=== PATIENT | male | born 1960 | race Caucasian/White ===

== ENCOUNTER → 2017-10-17 | Outpatient (CLI) | payer OTHER ==
[2017-10-17 09:27] LABS: ADD MAN DIFF? NO
[2017-10-17 09:31] LABS: BASO # 0.1 x10^3/uL (0.0-0.2); BASO % 1 % (0-3); EOS # 0.1 x10^3/uL (0.0-0.7); EOS % 2 % (0-3); HEMATOCRIT 42.2 % (39.0-53.0); HEMOGLOBIN 14.3 g/dL (13.0-17.5); LYMPH # 1.9 x10^3/uL (1.0-4.8); LYMPH % 29 % (24-48); MEAN CORPUSCULAR HEMOGLOBIN 30 pg (25-35); MEAN CORPUSCULAR HGB CONC 34 g/dL (31-37); MEAN CORPUSCULAR VOLUME 90 fL (79-100); MONO # 0.5 x10^3/uL (0.0-1.1); MONO % 7 % (0-9); NEUT # 4.2 x10^3uL (1.8-7.7); NEUT % 61 % (31-73); PLATELET COUNT 190 x10^3/uL (140-400); RED BLOOD COUNT 4.72 x10^6/uL (4.30-5.70); RED CELL DISTRIBUTION WIDTH 13.2 % (11.5-14.5); WHITE BLOOD COUNT 6.8 x10^3/uL (4.0-11.0)
[2017-10-17 09:47] LABS: INR 0.9 (0.8-1.1); PARTIAL THROMBOPLASTIN TIME 25 SEC (24-38); PROTHROMBIN TIME PATIENT 11.9 SEC (11.7-14.0)
[2017-10-17 09:52] LABS: ALBUMIN 3.9 g/dL (3.4-5.0); ANION GAP 9 (6-14); BLOOD UREA NITROGEN 17 mg/dL (8-26); CALCIUM 9.3 mg/dL (8.5-10.1); CARBON DIOXIDE 30 mmol/L (21-32); CHLORIDE 102 mmol/L (98-107); CREATININE 0.9 mg/dL (0.7-1.3); GFR 87.3; GLUCOSE 103 mg/dL (70-99); POTASSIUM 4.3 mmol/L (3.5-5.1); SODIUM 141 mmol/L (136-145)
[2017-10-17 10:57] LABS: SEDIMENTATION RATE 8 (0-15)
[2017-10-17 14:00] LABS: BILIRUBIN,URINE NEGATIVE (NEG); CLARITY,URINE CLEAR; COLOR,URINE YELLOW; GLUCOSE,URINE NEGATIVE (NEG); NITRITE,URINE NEGATIVE (NEG); PH,URINE 7.5; PROTEIN,URINE NEGATIVE (NEG-TRACE); UROBILINOGEN,URINE 0.2 mg/dL (0.2 mg/dL)
[2017-10-17 14:15] LABS: BACTERIA,URINE 0 /HPF (0-FEW); RBC,URINE 0 /HPF (0-2); WBC,URINE 0 /HPF (0-4)
[2017-10-17 22:13] LABS: MRSA BY PCR Negative (Negative)
== END | disposition home or self-care (01) ==
LOC: SURGPAT 09:01
DX: Z01.818 Encounter for other preprocedural examination (principal); M17.11 Unilateral primary osteoarthritis, right knee
CPT/HCPCS: 36415; 71046; 80048; 81001; 82040; 82306; 85025; 85610; 85651; 85730; 87641; 93005

== ENCOUNTER → 2018-06-12 | Outpatient (CLI) | payer OTHER ==
[2017-11-11 12:13] VITALS: BP 142/75
[~2018-06-12] MED LIST: ASPI-630 PO; ASPI325T11 PO; CELE200C PO; FERR325T14 PO; GABA-585 PO; LOSA1TAB19 PO; LOSA1TAB25 PO; MELO15TA23 PO; OMEG-165 PO; OMEP20TA8 PO; OXYC-323 PO; SENN1TAB8 PO
[2018-06-12 11:57] LABS: BASO % 1 % (0-3); EOS # 0.2 x10^3/uL (0.0-0.7); EOS % 3 % (0-3); HEMATOCRIT 42.5 % (39.0-53.0); HEMOGLOBIN 14.5 g/dL (13.0-17.5); LYMPH # 2.1 x10^3/uL (1.0-4.8); LYMPH % 28 % (24-48); MEAN CORPUSCULAR HEMOGLOBIN 31 pg (25-35); MEAN CORPUSCULAR HGB CONC 34 g/dL (31-37); MEAN CORPUSCULAR VOLUME 91 fL (79-100); MONO # 0.6 x10^3/uL (0.0-1.1); MONO % 8 % (0-9); NEUT # 4.6 x10^3uL (1.8-7.7); NEUT % 61 % (31-73); PLATELET COUNT 185 x10^3/uL (140-400); RED BLOOD COUNT 4.68 x10^6/uL (4.30-5.70); RED CELL DISTRIBUTION WIDTH 13.1 % (11.5-14.5); WHITE BLOOD COUNT 7.5 x10^3/uL (4.0-11.0)
[2018-06-12 11:59] LABS: BILIRUBIN,URINE NEGATIVE (NEG); CLARITY,URINE CLEAR; COLOR,URINE YELLOW; NITRITE,URINE NEGATIVE (NEG); PH,URINE 7.5; PROTEIN,URINE NEGATIVE (NEG-TRACE)
[2018-06-12 12:05] LABS: PROTHROMBIN TIME PATIENT 12.4 SEC (11.7-14.0)
[2018-06-12 12:08] LABS: BACTERIA,URINE 0 /HPF (0-FEW); RBC,URINE 0 /HPF (0-2)
[2018-06-12 12:08] LABS: CALCIUM 9.4 mg/dL (8.5-10.1); CREATININE 0.9 mg/dL (0.7-1.3)
== END | disposition home or self-care (01) ==
LOC: SURGPAT 11:02
PROVIDERS: ATTEND Orthopaedic Surgery
DX: Z01.818 Encounter for other preprocedural examination (principal); M17.12 Unilateral primary osteoarthritis, left knee
CPT/HCPCS: 36415; 80048; 81001; 82040; 82306; 85025; 85610; 85651; 85730; 87086; 87641

== ENCOUNTER 2018-06-27 05:42 | Inpatient (IN) | payer OTHER ==
--- NOTE | 2018-06-26 20:58 | PDOC1 ---
History and Physical Date of Admission Date of Admission DATE: 06/27/18 Identification/Chief Complaint Chief Complaint left knee osteoarthritis pain Source Source: Chart review History of Present Illness History of Present Illness The patient is a 58 year old male with left knee osteoarthritis pain. He had right total knee arthroplasty on 11/08/17, which is doing well. He states his left knee has become more symptomatic. The left knee pain is primarily along the medial aspect of the knee and is described as dull and achy. The pain is worse with prolonged weightbearing. Past Medical History Cardiovascular: HTN Past Surgical History Past Surgical History: Total knee replacement (right - 11/08/17), Other (right shoulder ) Family History Family History: Diabetes, Heart Disease, Osteo Arthiritis Social History Smoke: Quit (1987) ALCOHOL: occassional (8-10 drinks/week) Drugs: None Current Medications Current Medications Current Medications Morphine Sulfate 5 mg/Ketorolac Tromethamine 30 mg/Ropivacaine 60 ml/ Epinephrine HCl 0.5 mg/Sodium Chloride 100 ml @ 100 mls/hr 1X ONCE INT ART ; Start 06/27/18 at 06:00; Stop 06/27/18 at 06:59 Meloxicam (Mobic) 15 mg 1X PREOP PRN PO PRIOR TO PROCEDURE; Start 06/27/18 at 06:00; Stop 06/27/18 at 18:00 Acetaminophen/ Hydrocodone Bitart (Lortab 7.5/325) 2 tab 1X PREOP PRN PO PRIOR TO PROCEDURE; Start 06/27/18 at 06:00; Stop 06/27/18 at 18:00 Clindamycin Phosphate 50 ml @ 100 mls/hr 1X PREOP PRN IV PRIOR TO PROCEDURE; Start 06/27/18 at 06:00; Stop 06/27/18 at 18:00 Tranexamic Acid 1000 mg/Sodium Chloride 60 ml @ 60 mls/hr 1X PERIOP ONCE INJ ; Start 06/27/18 at 06:00; Stop 06/27/18 at 06:59 Tranexamic Acid 1000 mg/Sodium Chloride 60 ml @ 60 mls/hr 1X PERIOP ONCE INJ ; Start 06/27/18 at 08:00; Stop 06/27/18 at 08:59 Ondansetron HCl (Zofran) 4 mg PRN Q6HRS PRN IV NAUSEA/VOMITING; Start at 07:00; Stop 06/28/18 at 06:59; Status UNV Fentanyl Citrate (Fentanyl 2ml Vial) 25 mcg PRN Q5MIN PRN IV MILD PAIN; Start 06/27/18 at 07:00; Stop 06/28/18 at 06:59; Status UNV Fentanyl Citrate (Fentanyl 2ml Vial) 50 mcg PRN Q5MIN PRN IV MODERATE TO SEVERE PAIN; Start 06/27/18 at 07:00; Stop 06/28/18 at 06:59; Status UNV Morphine Sulfate (Morphine Sulfate) 1 mg PRN Q10MIN PRN IV SEVERE PAIN; Start 06/27/18 at 07:00; Stop 06/28/18 at 06:59; Status UNV Ringer's Solution 1,000 ml @ 30 mls/hr Q24H IV ; Start 06/27/18 at 07:00; Stop 06/27/18 at 18:59; Status UNV Lidocaine HCl (Xylocaine-Mpf 1% 2ml Vial) 2 ml PRN 1X PRN ID PRIOR TO IV START ; Start 06/27/18 at 07:00; Stop 06/28/18 at 06:59; Status UNV Hydromorphone HCl (Dilaudid) 0.5 mg PRN Q10MIN PRN IV SEV PAIN, Second choice; Start 06/27/18 at 07:00; Stop 06/28/18 at 06:59; Status UNV Prochlorperazine Edisylate (Compazine) 5 mg PACU PRN PRN IV NAUSEA, MRX1; Start 06/27/18 at 07:00; Stop 06/28/18 at 06:59; Status UNV Active Scripts Active Reported Losartan-Hctz 100-12.5 Mg Tab (Losartan/Hydrochlorothiazide) 1 Each Tablet 1 Tab PO DAILY Ferrous Sulfate 325 Mg Tablet 1 Tab PO DAILY Aspirin Ec (Aspirin) 325 Mg Tablet.dr 1 Tab PO BID Meloxicam 15 Mg Tablet 1 Tab PO ONCE Omeprazole 20 Mg Tablet.dr 20 Mg PO DAILY Gabapentin 100 Mg Capsule 100 Mg PO HS Allergies Allergies: Coded Allergies: Penicillins (Verified Allergy, Severe, Anaphylaxis, 06/12/18) Physical Exam General: Alert, No acute distress HEENT: Atraumatic, EOMI Lungs: Normal air movement Heart: RRR Abdomen: Soft Extremities: No clubbing, No cyanosis, Normal pulses, Other ( LEFT KNEE: mildly antalgic gait. No masses. No detectable effusion. Tenderness on the medial and lateral joint lines. Range of motion is 5-115 degrees. There is crepitus with range of motion, and pain at the extremes of motion. The knee is stable to varus and valgus stress without subluxation or laxity. Muscle strength is normal (5/5) for quadriceps and hamstrings, and muscle tone is normal. The skin is normal with no scars, rashes, lesions or ulcers. Light touch sensation is intact. No edema ) Skin: No rashes, No breakdown, No significant lesion Neuro: Normal speech, Sensation intact Psych/Mental Status: Mental status NL, Mood NL VTE Prophylaxis Ordered VTE Prophylaxis Devices: Yes VTE Pharmacological Prophylaxi: Yes Assessment/Plan Assessment/Plan Left knee osteoarthritis pain. The patient is a 58 year old male with left knee osteoarthritis. He would like to proceed with a left total knee replacement. He will schedule at his convenience. We discussed the risks and benefits of knee replacement including bleeding, infection, post-operative stiffness, instability, nancy-prosthetic fracture, DVT and PE. All questions were answered. He would like to proceed with the surgery to improve his pain and range of motion. He will follow up with me 10-14 days postop. ADELITA GARCÍA Jun 26, 2018 20:58
[~2018-06-27] VITALS: Ht 170.2 cm; Wt 120.2 kg
[2018-06-27] VITALS (9 sets, daily range): BP systolic 94–138; BP diastolic 69–80
[~2018-06-27 05:42] MED LIST changes: +TOBRAMYCIN POWDER 1.2 GM VIAL. ONE; +VANCOMYCIN 1 GM VIAL. ONE
[2018-06-27] MEDS ORDERED: MELOXICAM 7.5 MG TABLET PO PRN (06:00)
[2018-06-27] MEDS ORDERED: MORPHINE SULFATE 5 MG, KETOROLAC 30MG VIAL 30 MG, ROPIVacaine 0.5% PF 60 ML, EPINEPHrin... INT ART ONE ×5 (06:00)
[2018-06-27] MEDS ORDERED: TRANEXAMIC ACID 1,000 MG in IV NS 50ML -- 1ST BAG INJ ONE (06:00)
[2018-06-27] MEDS ORDERED: HYDROcodone/APAP 7.5/325MG 1 TAB TABLET PO PRN (06:00)
[2018-06-27] MEDS ORDERED: CLINDAMYCIN 900MG PREMIX 50 ML IV PRN (06:00)
[2018-06-27] MEDS ORDERED: DEXAMETHASONE SOD PHOS 20 MG/5 ML VIAL. ONE (06:56)
[2018-06-27] MEDS ORDERED: ROCURONIUM 50 MG/5 ML VIAL. ONE (06:56)
[2018-06-27] MEDS ORDERED: MIDAZOLAM HCL/PF 2 MG/2 ML VIAL. ONE (06:56)
[2018-06-27] MEDS ORDERED: LIDOCAINE 2% PF Vial for OR 5 ML VIAL. ONE (06:56)
[2018-06-27] MEDS ORDERED: PROPOFOL 20 ML IV ONE (06:56)
[2018-06-27] MEDS ORDERED: ONDANSETRON PF 4 MG/2 ML VIAL. ONE (06:56)
[2018-06-27] MEDS ORDERED: FAMOTIDINE 20 MG/2 ML VIAL ONE (06:56)
[2018-06-27] MEDS ORDERED: fentaNYL PF VIAL 100 MCG/2 ML VIAL ONE (06:56)
[2018-06-27] MEDS ORDERED: LIDOCAINE 1% PF 2 ML VIAL. ID PRN (07:00)
[2018-06-27] MEDS ORDERED: ONDANSETRON PF 4 MG/2 ML VIAL. IV PRN (07:00)
[2018-06-27] MEDS ORDERED: HYDROmorphone 2 MG/ML VIAL IV PRN (07:00)
[2018-06-27] MEDS ORDERED: MORPHINE SULFATE 2 MG/ML VIAL. IV PRN ×2 (07:00→10:00)
[2018-06-27] MEDS ORDERED: fentaNYL PF VIAL 100 MCG/2 ML VIAL IV PRN ×3 (07:00→10:00)
[2018-06-27] MEDS ORDERED: IV RINGERS,LACTATED 1000ML 1,000 ML IV SCH (07:00)
[2018-06-27] MEDS ORDERED: PROCHLORPERAZINE 10 MG/2 ML VIAL. IV PRN ×2 (07:00→10:00)
[2018-06-27] MEDS ORDERED: SUCCINYLCHOLINE 200 MG/10 ML VIAL. ONE (07:21)
[2018-06-27] MEDS ORDERED: ePHEDrine PF IN SALINE 50 MG/5 ML DISP.SYRIN IV ONE (07:33)
[2018-06-27] MEDS ORDERED: TRANEXAMIC ACID 1,000 MG in IV NS 50ML -- 2ND BAG INJ ONE (08:00)
[2018-06-27] MEDS ORDERED: NEOSTIGMINE METHYLSULFATE 5 MG/5 ML SYRINGE. ONE (08:37)
[2018-06-27] MEDS ORDERED: GLYCOPYRROLATE 1 MG/5 ML VIAL. ONE (08:37)
[2018-06-27] MEDS ORDERED: SEVOFLURANE > 120 MINUTES. IH ONE (09:29)
--- NOTE | 2018-06-27 09:37 | PDOC4 ---
Operative Note Operative Note Date of Procedure: June 27, 2018 Pre-Op Diagnosis: Osteoarthritis left knee Post-Op Diagnosis: Osteoarthritis left knee Procedure: left total knee arthroplasty Surgeon: Murray Koehler MD Rn Correctional: Nicole Finley PA-C Anesthesia: General EBL: 100 mL Specimens Obtained: left knee bone and soft tissue Complications: none Implant Company: [employer] Drains: hemovac plus pain catheter Tourniquet time: 58 Minutes Tourniquet Pressure: 350 mm Hg Indications for Procedure: Arthritis pain unrelieved by nonoperative management Findings: Severe osteoarthritis with bone on bone contact and eburnation medially and at the trochlea, with high grade cartilage loss of the patella, and of the lateral tibiofemoral joint. MCL degenerative and at risk with initial tightness, and then release needed with additional risk from trial polyethylene reduction maneuvers. Constrained polyethylene chosen to protect MCL. Implants used: Size 4 left bicruciate stabilized Journey II BCS Oxinium femoral component, size 3 left Journey nonporous tibial baseplate, size 3-4 18 mm left Journey II BCS XLPE constrainedarticular insert, 32 mm oval June II resurfacing patellar component Procedure in Detail: The patient was identified in the preoperative holding area, and the correct left lower extremity was marked by me. The patient was taken to the operating room where the patient was anesthetized by the Department of Anesthesia. Preoperative antibiotics were given intravenously. Tranexamic acid 1 g was given intravenously for intraoperative hemostasis. A "time-out" procedure was performed. The patient was positioned supine on the operative table with a tourniquet on the upper left thigh. The left lower limb was thoroughly prepped and draped in sterile fashion. An impervious stockinet and adhesive drape were used such that the skin was entirely covered. An Linares leg mendes was used. The operating team wore personal exhaust-ventilated hoods. The limb was elevated to exsanguinate it, and the tourniquet was inflated. A midline skin incision was made with a scalpel using the patella and tibial tubercle as landmarks. Electrocautery was used for hemostasis. My cafe assistant used rake retractors. A medial parapatellar arthrotomy incision was used with extension into the distal quadriceps tendon. The patella was retracted laterally and Hohmann retractors were now used by my cafe assistant. Excess synovium, the menisci, and the cruciate ligaments were resected sharply. The patella was assessed and excess synovium and osteophytes around the patellar articulation were removed. The patella was measured with a caliper, cut freehand with a saw using caliper measurements, sized, and then drilled for an oval three-pegged patella component. Periarticular anesthetic injection was used in the suprapatellar pouch and distal quadriceps muscle. Whitesides's line and the transepicondylar axis were marked on the femur. An intra-medullary 5 degree cutting guide was pinned to the femur, and a distal femoral cut was made with an oscillating saw. An additional 2 mm resection was used due to the deep femoral sulcus, and deficient condyle. My cafe assistant held Hohmann retractors and an [facility] retractor to protect the medial and lateral collateral ligaments, the patellar tendon, the skin and the other soft tissues. A posterior referencing guide was applied with external rotation of 3 to match Whitesides line. A 5-in-1 Journey II cutting guide was then applied and pinned to the femur. The posterior, anterior, and all chamfer cuts were made with the oscillating saw. An extramedullary guide was pinned to the tibia and rotational alignment and the planned resection thickness assessed. An external alignment lore was used to verify the planned cut in the varus-valgus plane and regarding posterior slope referencing the tibial tubercle, the tibial shaft, the ankle joint, and the second metatarsal. The upper tibia was cut made with an oscillating saw. My cafe assistant held Hohmann retractors and a posterior cruciate ligament retractor to protect the medial and lateral collateral ligaments, the patellar tendon, the skin, the peroneal nerve and the other soft tissues. The upper tibia was sized with a trial baseplate. The posterior compartment was cleared of osteophytes and loose bodies. Periarticular anesthetic injection was used in the posterior compartment. The box cut for a posterior stabilized component was made. A preliminary reduction was performed with a trial femur, trial tibial baseplate and trial polyethylene. Soft-tissue balancing was now performed, and extension and rotation of the alignments was checked using a guide lore in the tibial trial and a guide pin in the femur. A medial release was required, using a 10 blade scalpel, and a Hallman elevator to elevate the medial structures from the upper medial tibia. The stability was assessed using different thicknesses of tibial articular surface to find satisfactory stability and good range of motion. The rotation of the tibial component was marked on the upper tibia. Final trial reduction was now performed verifying patella tracking and tibiofemoral stability and alignment. The tibia preparation was completed with a drill, saw, and fin punch at the previously noted rotation. The final implants were verified and opened. Outer gloves were changed by the operating team. The bone cuts were washed thoroughly with the [employer] InterPulse device and dried. I asked Ms. Finley to leave the room while the cement was mixed. Two packages of Krishnamurthy + Nephew Rally MV bone cement were mixed in powdered form with Vancomycin 1gm and Tobramycin 1.2 gm, and then vacuum-mixed with the monomer, and placed into a cement gun. The cut surfaces of the bone were thoroughly dried with Christopher-tip suction and with laparotomy sponges for cement interdigitation. The final components were cemented into place. The knee was kept at full extension while the cement hardened, and excess cement was removed. Tranexamic acid 1 g was redosed intravenously for additional intraoperative hemostasis. The tourniquet was released, and electrocautery was used for hemostasis. A final periarticular anesthetic injection was used for pain relief. Ms. Finley scrubbed, hooded, gowned, gloved, and returned to the case. A final check of [id number] and stability was made, and the polyethylene implant final size was chosen. The polyethylene implant was secured to the tibial baseplate, and the knee was reduced a final time and range of motion and stability was confirmed. Thorough irrigation was used. Hemovac and pain catheter were used.The arthrotomy was closed with interrupted [id number] # 1 PDS suture. The arthrotomy incision was then run with #1 STRATAFIX Symmetric PDS Plus Knotless suture. The subcutaneous tissues were closed with #2-0 Vicryl by my cafe assistant. The skin was approximated with mary by my cafe assistant. The skin incision was then covered and reinforced with BERLIN single use negative pressure wound therapy dressing Needle and sponge counts were correct. There were no apparent complications. The patient returned to the recovery room in stable condition. MURRAY KOEHLER MD Jun 27, 2018 09:37
[2018-06-27] MEDS ORDERED: DEXTROSE 50% 25 GM / 50ML DISP.SYRIN. IV PRN (10:00)
[2018-06-27] MEDS ORDERED: METOCLOPRAMIDE HCL 10 MG/2 ML VIAL. IV PRN (10:00)
[2018-06-27] MEDS ORDERED: MORPHINE SULFATE 10 MG/ML VIAL. IV PRN (10:00)
[2018-06-27] MEDS ORDERED: ACETAMINOPHEN 325 MG TABLET. PO PRN (10:00)
[2018-06-27] MEDS ORDERED: PROCHLORPERAZINE 5 MG TABLET. PO PRN (10:00)
[2018-06-27] MEDS ORDERED: traMADol 50 MG TABLET PO PRN ×2 (10:00)
[2018-06-27] MEDS ORDERED: diphenhydrAMINE HCL 25 MG CAPSULE PO PRN (10:00)
[2018-06-27] MEDS ORDERED: HYDROcodone/APAP 10/325 1 TAB TABLET PO PRN (10:00)
[2018-06-27] MEDS ORDERED: CALCIUM CARBONATE 500 MG TAB.CHEW PO PRN (10:00)
[2018-06-27] MEDS ORDERED: 0.9 % SODIUM CHLORIDE 10 ML DISP.SYRIN. IV PRN (10:00)
[2018-06-27] MEDS ORDERED: MORPHINE SULFATE 4 MG/ML VIAL. IV PRN ×2 (10:00)
[2018-06-27] MEDS: fentaNYL PF VIAL 100 MCG/2 ML VIAL IV PRN ×3 (10:12→10:35)
--- NOTE | 2018-06-27 10:20 | RAD ---
Examination: 2 views of the left knee HISTORY: History of postop total knee replacement COMPARISON: 11/07/2013 FINDINGS: Total knee arthroplasty changes in normal alignment. A drain is identified in the knee joint. Postsurgical changes identified in the posterior patella. Small knee joint effusion. IMPRESSION: Total knee arthroplasty changes in normal alignment. Electronically signed by: Juan M Lindsey MD (06/27/2018 10:16 AM) [id number]
[2018-06-27] MEDS: IV DEXTROSE 5 %-0.45 % NACL 1,000 ML IV SCH ×2 (11:20→21:33)
[2018-06-27] MEDS: oxyCODONE/APAP 7.5/325 1 TAB TABLET PO PRN ×2 (13:03→16:47)
[2018-06-27] MEDS: CLINDAMYCIN 900MG PREMIX 50 ML IV SCH ×2 (13:04→19:35)
[2018-06-27] MEDS: FERROUS SULFATE 325 MG TABLET. PO SCH (16:46)
[2018-06-27] MEDS: KETOROLAC 30MG VIAL 30 MG, BUPIVACAINE MPF 0.25% 20 ML, EPINEPHrine 0.5 MG in TOTAL VOL... INT ART SCH (18:16)
[2018-06-27] MEDS: ASPIRIN ENTERIC COATED 325 MG TABLET.DR. PO SCH (20:41)
[2018-06-27] MEDS: GABAPENTIN 100 MG CAPSULE. PO SCH (20:41)
[2018-06-27] MEDS: ZOLPIDEM 5 MG TABLET. PO PRN (22:12)
[2018-06-27] MEDS: oxyCODONE/APAP 5/325 1 TAB TABLET PO PRN (22:12)
[2018-06-28] MEDS: CLINDAMYCIN 900MG PREMIX 50 ML IV SCH (01:36)
[2018-06-28 03:00] VITALS: BP 113/52
[2018-06-28] MEDS: oxyCODONE/APAP 7.5/325 1 TAB TABLET PO PRN ×4 (03:36→17:25)
[2018-06-28 04:37] LABS: HEMATOCRIT 31.5 % (39.0-53.0); HEMOGLOBIN 10.9 g/dL (13.0-17.5)
[2018-06-28] MEDS: KETOROLAC 30MG VIAL 30 MG, BUPIVACAINE MPF 0.25% 20 ML, EPINEPHrine 0.5 MG in TOTAL VOL... INT ART SCH (05:58)
[2018-06-28] MEDS ORDERED: MAGNESIUM HYDROXIDE 2,400 MG/30 ML ORAL.SUSP. PO PRN (06:00)
[2018-06-28 06:38] VITALS: BP 116/59
[2018-06-28] MEDS: PANTOPRAZOLE 40 MG TABLET.DR. PO SCH (07:03)
[2018-06-28] MEDS: IV DEXTROSE 5 %-0.45 % NACL 1,000 ML IV SCH ×2 (07:30→17:16)
[2018-06-28] MEDS ORDERED: NON FORMULARY ITEM (Losartan/Hydrochlorothiazide (Losartan-Hctz 100-12.5 Mg Tab) 1 TAB) PO SCH (09:00)
[2018-06-28] MEDS: MULTIVITAMIN with MINERAL TABLET. PO SCH (09:00)
[2018-06-28] MEDS: SENNOSIDES/DOCUSATE 8.6/50MG TABLET. PO SCH (09:01)
[2018-06-28] MEDS: ASPIRIN ENTERIC COATED 325 MG TABLET.DR. PO SCH ×2 (09:02→21:12)
[2018-06-28] MEDS: FERROUS SULFATE 325 MG TABLET. PO SCH ×2 (09:02→17:25)
[2018-06-28] MEDS: MELOXICAM 7.5 MG TABLET PO SCH (09:02)
[2018-06-28] MEDS: hydroCHLOROthiazide 12.5 MG CAPSULE PO SCH (09:06)
[2018-06-28] MEDS: LOSARTAN POTASSIUM 50 MG TABLET. PO SCH (09:06)
--- NOTE | 2018-06-28 13:16 | PDOC ---
PROGRESS NOTES Subjective Subjective Doing well. Pain controlled. Pt states he feel like this knee is less swollen than his other knee was postop. Objective Vital Signs Vital Signs Date Time Temp Pulse Resp B/P (MAP) Pulse Ox O2 Delivery O2 Flow Rate FiO2 06/28/18 12:42 Room Air 06/28/18 09:06 93 140/79 06/28/18 06:38 97.8 96 97.8 06/28/18 04:41 18 06/27/18 13:03 2.0 Physical Exam Postop dressing dry and intact. Hemovac and pain catheter in place. Thigh and calf soft and nontender with negative Homans sign. Good AROM toes, foot, and ankle, with no sign of neurovascular injury nor compartment syndrome. Labs Laboratory Tests Test 06/28/18 03:30 Hemoglobin 10.9 g/dL (13.0-17.5) Hematocrit 31.5 % (39.0-53.0) Mean Corpuscular Hemoglobin Concent 35 g/dL (31-37) Laboratory Tests Test 06/28/18 03:30 Hemoglobin 10.9 g/dL (13.0-17.5) Hematocrit 31.5 % (39.0-53.0) Mean Corpuscular Hemoglobin Concent 35 g/dL (31-37) Imaging Postoperative knee x-rays report reviewed, images independently reviewed. Satisfactory TKA alignment with no apparent complications. Assessment Assessment POD #1 TKA Plan Plan of Care Continue POC including PT and DVT prophylaxis. ADELITA GARCÍA Jun 28, 2018 13:16
[2018-06-28] MEDS ORDERED: BISACODYL 10 MG SUPP.RECT. PR PRN (16:00)
[2018-06-28 18:14] VITALS: BP 132/76
[2018-06-28] MEDS: GABAPENTIN 100 MG CAPSULE. PO SCH (21:12)
[2018-06-28] MEDS: HYDROcodone/APAP 7.5/325MG 1 TAB TABLET PO PRN (21:13)
[2018-06-28] MEDS: ZOLPIDEM 5 MG TABLET. PO PRN (21:13)
[2018-06-29] MEDS: oxyCODONE/APAP 7.5/325 1 TAB TABLET PO PRN (02:22)
[2018-06-29] MEDS: IV DEXTROSE 5 %-0.45 % NACL 1,000 ML IV SCH (03:23)
[2018-06-29 05:33] VITALS: BP 99/52
[2018-06-29] MEDS: HYDROcodone/APAP 7.5/325MG 1 TAB TABLET PO PRN (05:53)
[2018-06-29 06:36] LABS: HEMATOCRIT 29.9 % (39.0-53.0); HEMOGLOBIN 10.4 g/dL (13.0-17.5)
[2018-06-29] MEDS: PANTOPRAZOLE 40 MG TABLET.DR. PO SCH (07:19)
[2018-06-29] MEDS: MELOXICAM 7.5 MG TABLET PO SCH (08:29)
[2018-06-29] MEDS: FERROUS SULFATE 325 MG TABLET. PO SCH ×2 (08:29→16:42)
[2018-06-29] MEDS: oxyCODONE/APAP 5/325 1 TAB TABLET PO PRN ×4 (08:30→21:11)
[2018-06-29] MEDS: ASPIRIN ENTERIC COATED 325 MG TABLET.DR. PO SCH ×2 (08:30→20:55)
[2018-06-29] MEDS: SENNOSIDES/DOCUSATE 8.6/50MG TABLET. PO SCH (08:30)
[2018-06-29] MEDS: MULTIVITAMIN with MINERAL TABLET. PO SCH (08:30)
[2018-06-29] MEDS: LOSARTAN POTASSIUM 50 MG TABLET. PO SCH (08:33)
[2018-06-29] MEDS: hydroCHLOROthiazide 12.5 MG CAPSULE PO SCH (08:33)
[2018-06-29 08:35] VITALS: BP 115/65
--- NOTE | 2018-06-29 12:06 | PDOC ---
PROGRESS NOTES Subjective Subjective Pain controlled Objective Vital Signs Vital Signs Date Time Temp Pulse Resp B/P (MAP) Pulse Ox O2 Delivery O2 Flow Rate FiO2 06/29/18 08:35 80 115/65 (82) 06/29/18 08:30 Room Air 06/29/18 06:59 18 06/29/18 05:33 98.4 94 98.4 06/27/18 13:03 2.0 Physical Exam Knee BERLIN dressing with spotty drainage only, and slight bleeding from hemovac site. Calf and thigh soft and NT. Good AROM toes, foot and ankle with negative Homans and no sign of neurovascular injury nor compartment syndrome. Pain catheter and hemovac have been removed. Not yet safely walking with walker Labs Laboratory Tests Test 06/28/18 03:30 06/29/18 04:45 Hemoglobin 10.9 g/dL (13.0-17.5) 10.4 g/dL (13.0-17.5) Hematocrit 31.5 % (39.0-53.0) 29.9 % (39.0-53.0) Mean Corpuscular Hemoglobin Concent 35 g/dL (31-37) 35 g/dL (31-37) Laboratory Tests Test 06/29/18 04:45 Hemoglobin 10.4 g/dL (13.0-17.5) Hematocrit 29.9 % (39.0-53.0) Mean Corpuscular Hemoglobin Concent 35 g/dL (31-37) Imaging Postoperative knee x-rays. Report reviewed, images independently reviewed. Satisfactory TKA alignment with no apparent complications. Assessment Assessment POD 2 after TKA Plan Plan of Care Continue PT and DVT prophylaxis. Discharge planning for tomorrow MURRAY CUEVA MD Jun 29, 2018 12:06
[2018-06-29] MEDS ORDERED: BISACODYL 5 MG TABLET.DR. PO PRN (13:00)
--- NOTE | 2018-06-29 14:13 | PATHOLOGY ---
[facility] Accession Number: [id number] . 01 Material submitted: . BONE LEFT KNEE . 01 Clinical history: . Left knee osteoarthritis . 02 Diagnosis: Segments of bone and soft tissue, left total knee arthroplasty: - Advanced degenerative arthritis. (JPM:[facility] 06/29/2018) QTP/06/29/2018 . 02 Electronically signed: . Filippo Telles MD, Pathologist NPI- [id number] . 01 Gross description: . Received in formalin labeled "Nelson Ernandez, bone left knee," are multiple segments of bone, including tibial plateau, measuring 15.3 x 15.0 x 2.4 cm in aggregate dimensions. Soft tissue and meniscus are present. The specimen displays extensive eburnation of the articular surfaces. Study Lead bone and soft tissue are submitted in cassette A1, following decalcification. ([facility]; 06/28/2018) XDC/XDC . 02 Pathologist provided ICD-10: M17.12 . 02 CPT . 878515, [id number] Specimen Comment: A courtesy copy of this report has been sent to Specimen Comment: [phone]. Specimen Comment: Report sent to Performed at: 01 [facility] [address], [place] [id number] MD Grover Kenney MD Phone: [phone] Performed at: 02 [facility] [address] [place], [place] [id number] MD Filippo Telles MD Phone: [phone]
[2018-06-29 17:51] VITALS: BP 126/77
[2018-06-29] MEDS: GABAPENTIN 100 MG CAPSULE. PO SCH (20:55)
[2018-06-30 04:41] LABS: HEMATOCRIT 31.4 % (39.0-53.0); HEMOGLOBIN 10.8 g/dL (13.0-17.5)
[2018-06-30 06:20] VITALS: BP 134/68
[2018-06-30] MEDS: PANTOPRAZOLE 40 MG TABLET.DR. PO SCH (06:35)
[2018-06-30] MEDS: oxyCODONE/APAP 5/325 1 TAB TABLET PO PRN (06:56)
[2018-06-30] MEDS: MELOXICAM 7.5 MG TABLET PO SCH (08:18)
[2018-06-30] MEDS: MULTIVITAMIN with MINERAL TABLET. PO SCH (08:18)
[2018-06-30] MEDS: ASPIRIN ENTERIC COATED 325 MG TABLET.DR. PO SCH (08:18)
[2018-06-30] MEDS: FERROUS SULFATE 325 MG TABLET. PO SCH (08:18)
[2018-06-30] MEDS: SENNOSIDES/DOCUSATE 8.6/50MG TABLET. PO SCH (08:19)
[2018-06-30] MEDS: hydroCHLOROthiazide 12.5 MG CAPSULE PO SCH (08:22)
[2018-06-30] MEDS: LOSARTAN POTASSIUM 50 MG TABLET. PO SCH (08:22)
[2018-06-30] MEDS: oxyCODONE/APAP 7.5/325 1 TAB TABLET PO PRN ×2 (12:31→16:22)
[2018-06-30 15:40] VITALS: BP 120/65
--- NOTE | 2018-06-30 16:16 | PDOC ---
PROGRESS NOTES Subjective Subjective Doing well, pain controlled. Objective Vital Signs Vital Signs Date Time Temp Pulse Resp B/P (MAP) Pulse Ox O2 Delivery O2 Flow Rate FiO2 06/30/18 15:40 99.1 80 18 120/65 (83) 97 Room Air 99.1 06/27/18 13:03 2.0 Physical Exam BERLIN dressing intact with spotty drainage only. Calf and thigh soft and NT. Good AROM toes, foot and ankle with negative Homans sign and no sign of neurovascular injury nor compartment syndrome. Labs Laboratory Tests Test 06/29/18 04:45 06/30/18 03:00 Hemoglobin 10.4 g/dL (13.0-17.5) 10.8 g/dL (13.0-17.5) Hematocrit 29.9 % (39.0-53.0) 31.4 % (39.0-53.0) Mean Corpuscular Hemoglobin Concent 35 g/dL (31-37) 35 g/dL (31-37) Laboratory Tests Test 06/30/18 03:00 Hemoglobin 10.8 g/dL (13.0-17.5) Hematocrit 31.4 % (39.0-53.0) Mean Corpuscular Hemoglobin Concent 35 g/dL (31-37) Assessment Assessment POD #3 TKA Plan Plan of Care Continue PT and DVT prophylaxis. Discharge this afternoon after therapy. ADELITA GARCÍA Jun 30, 2018 16:16
--- NOTE | 2018-06-30 16:19 | PDOC3 ---
Discharge Summary Visit Information Date of Admission: Jun 27, 2018 Date of Discharge: Jun 30, 2018 Admitting Diagnosis: left knee osteoarthritis pain Brief Hospital Course Allergies Allergies Coded Allergies Type Severity Reaction Last Updated Verified Penicillins Allergy Severe Anaphylaxis 06/27/18 Yes Vital Signs Vital Signs Date Time Temp Pulse Resp B/P (MAP) Pulse Ox O2 Delivery O2 Flow Rate FiO2 06/30/18 15:40 99.1 80 18 120/65 (83) 97 Room Air 99.1 Lab Results Laboratory Tests Test 06/29/18 04:45 06/30/18 03:00 Hemoglobin 10.4 g/dL (13.0-17.5) 10.8 g/dL (13.0-17.5) Hematocrit 29.9 % (39.0-53.0) 31.4 % (39.0-53.0) Mean Corpuscular Hemoglobin Concent 35 g/dL (31-37) 35 g/dL (31-37) Laboratory Tests Test 06/30/18 03:00 Hemoglobin 10.8 g/dL (13.0-17.5) Hematocrit 31.4 % (39.0-53.0) Mean Corpuscular Hemoglobin Concent 35 g/dL (31-37) Brief Hospital Course 58 year old male who presented with knee osteoarthritis, for elective total knee arthroplasty. The patient underwent total knee arthroplasty under general anesthesia the day of admission. Perioperative antibiotics and DVT prophylaxis were used. Postoperatively physical therapy and case management were consulted. The patient progressed and is stable for discharge. Discharge Information Condition at Discharge: Stable Follow Up: Weeks (2) Disposition/Orders: D/C to Home Scheduled Aspirin (Aspirin Ec), 1 TAB PO BID, (Reported) Ferrous Sulfate (Ferrous Sulfate), 1 TAB PO DAILY, (Reported) Gabapentin (Gabapentin), 100 MG PO HS, (Reported) Losartan/Hydrochlorothiazide (Losartan-Hctz 100-12.5 Mg Tab), 1 TAB PO DAILY, ( Reported) Meloxicam (Meloxicam), 1 TAB PO ONCE, (Reported) Omeprazole (Omeprazole), 20 MG PO DAILY, (Reported) Patient Instructions Patient Instructions Patient Instructions Continue to WBAT with walker. Keep dressing dry and intact. F/U with [facility] in 10-14 days. Call for appointment. Physical therapy for TKA Continue DVT prophylaxis with aspirin 325mg twice daily. ADELITA GARCÍA Jun 30, 2018 16:19
[2018-06-30] MEDS ORDERED: FERR325T14 PO (16:35)
[2018-06-30] MEDS ORDERED: OXYC-323 PO (16:35)
== END 2018-06-30 17:00 | disposition home or self-care (01) | DRG 470 ==
LOC: OPSVCIP 05:42 → 4 SOUTHEST 10:46
PROVIDERS: ADMIT Orthopaedic Surgery; ATTEND Orthopaedic Surgery
PROC: 0SRD069 Replacement of Left Knee Joint with Oxidized Zirconium on Polyethylene Synthetic Substitute, Cemented, Open Approach (ICD-10-PCS; principal; 2018-06-27 07:10)
DX: M17.12 Unilateral primary osteoarthritis, left knee (principal); I10 Essential (primary) hypertension; Z96.651 Presence of right artificial knee joint; Z83.3 Family history of diabetes mellitus; Z79.899 Other long term (current) drug therapy; Z82.49 Family history of ischemic heart disease and other diseases of the circulatory system; Z82.61 Family history of arthritis; Z87.891 Personal history of nicotine dependence; Z88.0 Allergy status to penicillin
CPT/HCPCS: 36415; 73560; 85014; 85018; 86850; 86900; 86901; 88305; 88311; A7015; C1713; J0171; J0330; J1100; J1885; J2001; J2250; J2270; J2405; J2704; J2710; J2795; J3010; J3260; J3370; J3490; J7030; J7120; 97116; 97150; 97530; 97535; A4461; C1769

== ENCOUNTER → 2020-05-07 | Outpatient (CLI) | payer OTHER ==
[~2020-05-07] MED LIST changes: -OXYC-323 PO; +OXYC1TAB15 PO; +SENN-161 PO; -SENN1TAB8 PO; -TOBRAMYCIN POWDER 1.2 GM VIAL. ONE; -VANCOMYCIN 1 GM VIAL. ONE
--- NOTE | 2020-05-07 09:38 | KCIC ---
Examination: MRI of the left shoulder without contrast HISTORY: History of left shoulder pain COMPARISON: None available TECHNIQUE: Multiplanar, multisequence MR imaging of the left shoulder without contrast FINDINGS: The long head of the biceps tendon within the bicipital groove. The attachment of the long head the biceps tendon to the superior labral anchor grossly appears intact. The attachment of the subscapularis tendon grossly appears intact. There is full-thickness tear of the supraspinatus, infraspinatus tendon with tendon retraction up to the level of the mid humerus head. There is extension of fluid into subacromial subdeltoid bursa. Moderate increased signal identified in the supraspinatus, infraspinatus tendon likely tendinosis. Mild muscle bulk loss identified supraspinatus, infraspinatus muscle. Moderate degenerative changes identified in the acromioclavicular joint. The acromion is type II. Mild increased signal identified in the superior labrum extending posteriorly probably a SLAP tear. There is mild obscuration of fat in the rotator interval. IMPRESSION: 1. Full-thickness tear of the supraspinatus and infraspinatus tendon with tendon retraction. 2. Moderate tendinosis of the rotator cuff. 3. Increased signal identified in the superior labrum extending posteriorly could be a SLAP tear. 4. Mild obscuration of fat in the rotator interval. Correlate for adhesive capsulitis. Electronically signed by: Juan M Lindsey MD (05/07/2020 9:35 AM) [id number]
== END | disposition home or self-care (01) ==
LOC: KCIC MRI 08:17
PROVIDERS: ATTEND Orthopaedic Surgery
DX: M75.122 Complete rotator cuff tear or rupture of left shoulder, not specified as traumatic (principal); M75.02 Adhesive capsulitis of left shoulder
CPT/HCPCS: 73221

== ENCOUNTER → 2020-07-28 | Outpatient (CLI) | payer OTHER ==
[2020-07-28 11:31] LABS: BASO # 0.1 x10^3/uL (0.0-0.2); BASO % 1 % (0-3); EOS # 0.2 x10^3/uL (0.0-0.7); EOS % 3 % (0-3); HEMATOCRIT 36.8 % (39.0-53.0); HEMOGLOBIN 12.5 g/dL (13.0-17.5); LYMPH # 1.8 x10^3/uL (1.0-4.8); LYMPH % 31 % (24-48); MEAN CORPUSCULAR HEMOGLOBIN 30 pg (25-35); MEAN CORPUSCULAR HGB CONC 34 g/dL (31-37); MEAN CORPUSCULAR VOLUME 89 fL (79-100); MONO # 0.5 x10^3/uL (0.0-1.1); MONO % 8 % (0-9); NEUT # 3.4 x10^3/uL (1.8-7.7); NEUT % 57 % (31-73); PLATELET COUNT 205 x10^3/uL (140-400); RED BLOOD COUNT 4.16 x10^6/uL (4.30-5.70); RED CELL DISTRIBUTION WIDTH 14.2 % (11.5-14.5); WHITE BLOOD COUNT 5.9 x10^3/uL (4.0-11.0)
== END ==
LOC: LAB 10:51
PROVIDERS: ATTEND Physician Assistant
DX: L08.9 Local infection of the skin and subcutaneous tissue, unspecified (principal)
CPT/HCPCS: 36415; 85025; 86140

== ENCOUNTER → 2021-03-18 | Outpatient (CLI) | payer OTHER ==
--- NOTE | 2021-03-19 10:40 | KCIC ---
EXAM: MRI LEFT SHOULDER WITHOUT CONTRAST INDICATION: Left shoulder injury, prior surgery 06/01/2020. In limited range of motion for 6 weeks after lifting injury COMPARISON: MRI left shoulder 05/07/2020 TECHNIQUE: Multiplanar, multisequence imaging of the left shoulder without contrast. FINDINGS: ROTATOR CUFF: There are surgical changes of rotator cuff repair. There is a recurrent full-thickness tear of the majority of the supraspinatus tendon with no intact fibers at the anterior 3 suture ancho rs fibers. Some of the far posterior fibers appear intact at the posterior supraspinatus suture ancho r. Torn fibers are retracted to the medial humeral head, similar to prior exam. There are cystic montes de oca ges in the bones around the anterior suture anchors, with a 1.8 x 1.4 cm cyst around a likely displac ed suture anchor in the humeral heads just proximal to the footprint (image 12, series 7). There is i rregularity of the overlying subchondral bone plate. The repaired infraspinatus tendon appears mostly intact. Subscapularis tendon is intact. There is new moderate to severe fatty atrophy of the infraspinatus muscle and moderate fatty atrophy of the supra spinatus muscle. Severe fatty atrophy of the teres minor is unchanged. LABRUM: Probable superior labral repair with recurrent macerated tear of the superior labrum. BICEPS TENDON: There are surgical changes of biceps tenodesis. ACROMIOCLAVICULAR JOINT: There are surgical changes of acromioplasty. GLENOHUMERAL JOINT: There is new diffuse full-thickness cartilage loss throughout the essentially the entire glenoid with subchondral marrow edema and remodeling of the articular surface. There is incre ased, deep partial and full thickness cartilage loss along most of the humeral head, greatest mediall y. OTHER: Large joint effusion. IMPRESSION: 1. Surgical changes of supraspinatus and infraspinatus repair. Recurrent large full-thickness tear of most the supraspinatus tendon with retraction. Some of the posterior supraspinatus fibers and infras pinatus fibers appear intact but irregular. There is worsened, moderate to severe atrophy of the infr aspinatus and moderate atrophy of the supraspinatus muscles. 2. Cystic changes around several anterior suture anchors including a large cyst around a suture ancho r in the mid humeral head. This suture anchor may be slightly displaced and there is irregularity of the overlying subchondral bone plate. 3. Surgical changes of labral tear with recurrent superior labral tear. 4. Worsened severe glenohumeral cartilage loss and subchondral marrow edema in the glenoid. Large yuri nt effusion. 5. Surgical changes of biceps tenodesis and acromioplasty.. Electronically signed by: Sara Campbell MD (03/19/2021 10:38 AM) [facility]
== END ==
LOC: KCIC MRI 14:23
PROVIDERS: ATTEND Orthopaedic Surgery
DX: M75.122 Complete rotator cuff tear or rupture of left shoulder, not specified as traumatic (principal); M25.412 Effusion, left shoulder
CPT/HCPCS: 73221

== ENCOUNTER → 2021-04-16 | Outpatient (CLI) | payer OTHER ==
[~2021-04-16] MED LIST changes: +LIDOCAINE WITH 8.4% SOD BICARB 3 ML DISP.SYRIN. INJ ONE
[2021-04-16 15:18] LABS: BF CLARITY CLEAR; BF COLOR COLORLESS; BF RBC COUNT 276 /cmm (Not Established); BF SOURCE SYNOVIAL; BF WBC COUNT 0 /cmm (Not Established)
--- NOTE | 2021-04-16 17:03 | RAD ---
EXAM: Fluoroscopic guided left shoulder aspiration. HISTORY: 61-year-old male with a history of supraspinatus and interspinous repair with recently diagn osed recurrent tear, labral tear repair and recurrent labral tear and biceps tendon repair and acromi oplasty surgery presents for aspiration of a previously demonstrated glenohumeral joint effusion. TECHNIQUE: The risks of the procedure were discussed with the patient and written and verbal consent was obtained. A time out was performed. A timeout was performed. Fluoroscopic imaging of the left ryan ulder was performed and a site overlying the joint space was selected for needle entry. The skin over lying this region was sterilely prepped, draped and infiltrated with 1% lidocaine. A spinal needle wa s then advanced into the joint space with fluoroscopic guidance. No fluid was aspirated despite multi ple attempts and needle repositioning. Therefore, the joint was irrigated with sterile saline and the saline was aspirated and submitted to the laboratory for analysis. The fluoroscopic images demonstra te evidence of prior acromioplasty surgery and postoperative changes involving the humeral head. Ther e is superior migration of the humeral head due to rotator cuff pathology. A single fluoroscopic imag e was obtained. The total fluoroscopy time was 0.1 minute. IMPRESSION: 1. Fluoroscopic guided left shoulder aspiration. No fluid was aspirated despite the presence of an ef fusion on the MRI performed 03/18/2021. This suggests interval resolution of the prior joint effusion. A small amount of sterile saline was injected into the joint space in the attempt to obtain aspirate for analysis. Minimal saline was aspirated and submitted to the laboratory. 2. Degenerative and postoperative changes involving the left shoulder, better characterized on the MR I performed 03/18/2021. Electronically signed by: Lucie Anton MD (04/16/2021 5:01 PM) [id number]
== END ==
LOC: RAD 13:02
PROVIDERS: ATTEND Orthopaedic Surgery
DX: M75.102 Unspecified rotator cuff tear or rupture of left shoulder, not specified as traumatic (principal); M25.412 Effusion, left shoulder; I10 Essential (primary) hypertension; K21.9 Gastro-esophageal reflux disease without esophagitis; M19.90 Unspecified osteoarthritis, unspecified site; F32.9 Major depressive disorder, single episode, unspecified; E66.9 Obesity, unspecified; G47.33 Obstructive sleep apnea (adult) (pediatric); Z87.891 Personal history of nicotine dependence; Z96.652 Presence of left artificial knee joint; Z98.890 Other specified postprocedural states
CPT/HCPCS: 20610; 36415; 77002; 87071; 87075; 89050; J3490

== ENCOUNTER 2021-05-29 06:13 | Day surgery (SDC) | payer OTHER ==
[~2021-05-29] VITALS: Ht 172.7 cm; Wt 122.7 kg
[~2021-05-29 06:13] MED LIST changes: +AMLO-187 PO; +CLINDAMYCIN 900MG PREMIX 50 ML IV PRN; +HYDR-2145 PO; +HYDROmorphone 2 MG/ML VIAL IVP PRN; +IV RINGERS,LACTATED 1000ML 1,000 ML IV SCH; -LIDOCAINE WITH 8.4% SOD BICARB 3 ML DISP.SYRIN. INJ ONE; +LOSA100T14 PO; +MELO7.5T29 PO; +MORPHINE SULFATE 2 MG/ML INJ. IVP PRN; +MULT-445 PO; +PROCHLORPERAZINE 10 MG/2 ML VIAL. IVP PRN; +fentaNYL PF VIAL 100 MCG/2 ML VIAL IVP PRN
[2021-05-29] MEDS ORDERED: ONDANSETRON PF 4 MG/2 ML VIAL. ONE (06:18)
[2021-05-29] MEDS ORDERED: PROPOFOL 10 MG/ML (20ML) VIAL. IV ONE (06:18)
[2021-05-29] MEDS ORDERED: LIDOCAINE 2% PF 5 ML VIAL. ONE (06:18)
[2021-05-29] MEDS ORDERED: DEXAMETHASONE SOD PHOS 4 MG/ML VIAL ONE (06:18)
[2021-05-29 06:55] VITALS: BP 135/76
[2021-05-29] MEDS ORDERED: BUPIVACAINE MPF 0.5% 30 ML VIAL. ONE (07:04)
[2021-05-29] MEDS ORDERED: fentaNYL PF VIAL 100 MCG/2 ML VIAL ONE (07:27)
[2021-05-29] MEDS ORDERED: TRAM50TA PO (07:38)
--- NOTE | 2021-05-29 07:40 | DISCH ---
DISCHARGE INSTRUCTIONS Condition on Discharge Condition on Discharge: Stable Activity After Discharge Activity Instructions for Disc: Other, see below (No hard grasping however fine motor use such as eating writing typing is allowed immediately) Lifting Instructions after Dis: No heavy lifting Weight Bearing Status after Di: As tolerated Diet after Discharge Diet after Discharge: Regular Wound Incision Care Wound/Incision Care: Ice to area for comfort, Change dressing (May remove dressing in [address] Band-Aid and shower but no soaking) Contacting the [facility] after DC Call your doctor for: Concerns you may have Follow-Up Follow up with: Dr. Nelson or Adriana 10 days Treatment/Equipment after DC Adaptive Equipment Issued: None SERENITY NELSON MD May 29, 2021 07:40
[2021-05-29] MEDS ORDERED: ePHEDrine PF IN SALINE 50 MG/10 ML SYRINGE. IV ONE (07:44)
[2021-05-29] MEDS ORDERED: PHENYLEPHRINE in 0.9% NACL PF 1 MG/10 ML SYRINGE. IV ONE (07:57)
[2021-05-29] MEDS ORDERED: SEVOFLURANE 31 TO 60 MINUTES. IH ONE (08:12)
[2021-05-29 08:34] VITALS: BP 115/56
--- NOTE | 2021-05-29 10:04 | PDOC4 ---
Operative Note Operative Note Date of surgery: 05/29/2021 Preoperative diagnosis: Left long trigger finger Postoperative diagnosis: Same Operative procedure: Left long trigger finger release Surgeon: Leslie Assist: Seth denise Anesthesia: General Estimated blood loss: 1 cc Complications: None Operative indications: He states that he had failed nonoperative management of the trigger finger had previous injections and we covered risks benefits postoperative course of surgical treatment with the rationale for A1 manuel release the possibility of nerve or blood vessel damage infection medical or other anesthetic complications continued pain scarring among others all his questions were answered and he wishes to proceed with surgical evaluation and treatment Operative text: Patient was identified procedure verified patient placed in s upine position on the operating table. After adequate amounts of general anesthesia were administered the left upper extremity was prepped and draped in standard sterile fashion with an upper arm tourniquet. After timeout was performed patient procedure identified and verified the left upper extremity was exsanguinated by Esmarch bandage tourniquet inflated to 250 mmHg and an incision was made transversely along the distal palmar crease and dissection carried out down to the flexor tendon sheath protecting the neurovascular bundles on either side a midline incision was made in the flexor tendon sheath and tenotomy scissors were used to divide the A1 manuel proximally and distally. Triggering was eliminated there was noted to be a chavez of fluid from the tendon sheath indicating irritation flexor profundus and superficialis tendon structures were noted to be intact. Thorough irrigation carried out with normal saline solution and closure accomplished with nylon suture in a vertical mattress fashion. Sterile dressings were then applied fingers were noted be warm pink following deflation of the tourniquet. Patient was returned to recovery room in stable condition having tolerated procedure well. Seth denise was present for the procedure assisted in patient positioning prepping draping retraction closure and dressings SERENITY BALDERRAMA MD May 29, 2021 10:04
== END 2021-05-29 09:08 | disposition home or self-care (01) ==
LOC: SURG 06:13
PROVIDERS: ATTEND Orthopaedic Surgery
DX: M65.332 Trigger finger, left middle finger (principal); I10 Essential (primary) hypertension; E66.9 Obesity, unspecified; G47.30 Sleep apnea, unspecified; M19.90 Unspecified osteoarthritis, unspecified site; F32.9 Major depressive disorder, single episode, unspecified; K21.9 Gastro-esophageal reflux disease without esophagitis; Z87.891 Personal history of nicotine dependence; Z79.899 Other long term (current) drug therapy; Z98.890 Other specified postprocedural states; Z82.49 Family history of ischemic heart disease and other diseases of the circulatory system; Z88.0 Allergy status to penicillin; Z72.89 Other problems related to lifestyle
CPT/HCPCS: 26055; A4930; A6402; J1100; J2370; J2405; J2704; J3010; J3490; A6452